=== PATIENT | female | born 1945 | race Caucasian/White ===

== ENCOUNTER → 2019-10-01 | Outpatient (CLI) | payer MEDICARE ==
[~2019-10-01] MED LIST: APAP650 PO; ATORVASTATIN CA40 MG PO; DETROL LA4 MG PO; DIOVAN 80 MG TA80 M1 PO; FLONASE 0.05%50 MCG NASAL; LABETALOL HCL100 MG PO; LEVOTHYROXIN0.025 MG PO; LEXAPRO 10 MG T10 M1 PO; NORCO 5-325 TA1 EACH PO; ONDANSETRON HCL4 M2 PO; REQUIP 0.25 M0.25 M1 PO; TOUJEO SOL300 UNIT/1 SQ; TOUJEO SOL300 UNIT/1 SUBQ; TRAZODONE 150150 M1 PO; TRAZODONE HCL100 MG PO; VENTOLIN HFA 1818 GM INH; XANAX1 MG PO
== END ==
LOC: M.RAD 13:39
DX: J98.4 Other disorders of lung (principal)